=== PATIENT | male | born 1960 | race African-American/Black ===

== ENCOUNTER 2020-04-23 15:44 | Inpatient (IN) | payer OTHER ==
[2020-04-23] MEDS ORDERED: Fentanyl 100 MCG/2 ML VIAL ONE (16:16)
[2020-04-23] MEDS ORDERED: Lidocaine 1% w/Epinephrine 1:100K 20 ML VIAL ONE (16:16)
[2020-04-23 16:23] LABS: #Lymphocytes 1.2 thou/uL (1.20-3.40); #Monocytes 1.7 thou/uL (0.11-0.59); #Neutrophils 9.9 thou/uL (1.40-6.50); %Basophils 0.2 % (0.0-1.0); %Eosinophils 0.1 % (0.0-10.0); %Monocytes 13.5 % (0.0-10.0); %Neutrophils 77.2 % (42.0-75.0); Hemoglobin 13.6 g/dL (14.0-18.0); Mean Corpuscular HGB CONC 31.4 g/dL (32.0-36.0); Mean Corpuscular Hemoglobin 26.3 pg (27.0-31.0); Mean Corpuscular Volume 83.7 fL (78.0-98.0); Mean Platelet Volume 8.4 fL (7.4-10.4); Platelet Count 236 thou/uL (130-400); RBC Distribution Width 12.9 % (11.5-14.5); Red Blood Cell (RBC) Count 5.16 mill/uL (4.70-6.10); White Blood Cell (WBC) Count 12.8 thou/uL (4.8-10.8)
[2020-04-23] MEDS ORDERED: Azithromycin 500 MG VIAL ONE (16:23)
[2020-04-23] MEDS ORDERED: cefTRIAXone\\ROCEPHIN 2 GM VIAL ONE (16:23)
[2020-04-23] MEDS ORDERED: Sodium Chloride 0.9% 100 ML ONE (16:23)
--- NOTE | 2020-04-23 16:28 | RAD ---
FRONTAL RADIOGRAPH CHEST PORTABLE UPRIGHT: 04/23/20 COMPARISON: None. HISTORY: Shortness of breath with pleuritic chest pain. FINDINGS: There is no pneumothorax. There is dense perihilar and bibasilar opacity with lobulated increased den sity in the mid right lung zone/right lung base. There is partial consolidation/collapse of the right middle lobe and both lower lobes with associated small/moderate sized pleural effusion. IMPRESSION: Extensive pleural and parenchymal opacity with a perihilar/bibasilar predominance. Findings may be on the basis of multilobar infectious pneumonitis, aspiration, and/or pulmonary edema. Recommend short term follow-up chest radiograph following treatment to document resolution. POS: [facility]
[2020-04-23 16:30] LABS: INR-International Normal Ratio 1.1; Prothrombin Time 14.5 sec (12.0-14.7)
[2020-04-23 16:43] LABS: ALT (SGPT) 8 U/L (8-55); AST (SGOT) 12 U/L (5-34); Albumin 3.5 g/dL (3.5-5.0); Alkaline Phosphatase 91 U/L (40-110); Anion Gap 16 mmol/L (10-20); BUN (Urea Nitrogen) 9 mg/dL (8.4-25.7); Bilirubin, Total 1.4 mg/dL (0.2-1.2); Calc. Creatinine Clearance 0 mL/min (70-130); Carbon Dioxide 19 mmol/L (22-29); Chloride 100 mmol/L (98-107); Estimated GFR-MDRD Greater than 90; Globulin 3.8 g/dL (2.4-3.5); Glucose 120 mg/dL (70-105); Lipase Less than 4 U/L (8-78); Potassium 3.7 mmol/L (3.5-5.1); Protein, Total 7.3 g/dL (6.0-8.3); Sodium 131 mmol/L (136-145)
[2020-04-23] MEDS ORDERED: Midazolam HCl 2 mg/2 ml Vial ONE (17:04)
--- NOTE | 2020-04-23 18:26 | PDOC.FPRHP ---
- History of Present Illness Chief Complaint: Shortness of breath History of Present Illness: 60 year old male with past medical history of heart failure with reduced ejection fraction presents to the emergency department with complaints of shortness of breath. Patient stated that about a week ago he started to develop shortness of breath and a cough. He was seen earlier this week at an urgent care and diagnosed with pneumonia and started on doxycycline. He was also covid- 19 tested at time which has since resulted negative. Today the patient states that he acutely became short of breath and called EMS. Upon arrival they noted lack of breath sounds on the right side and hypoxia in the mid-80s. They performed a needle decompression that resulted in improve right sided breath sounds and improved oxygenation to the mid-90s on 4 L of supplemental oxygen. In the emergency department patient was found to have an elevated white count and a fever of 100.5 Patient denied feeling feverish. He denies any chills chest pain palpitations swelling nausea vomiting or diarrhea. Patient does have a history of severe congestive heart failure and wears a life vest. He states that he follows with a dredge master in [place] as well as a dredge master here but does not recall the name. He denies missing any of his home medications. ED Course: Right chest tube placed by Dr. Nieves. Received freedom and jack. - Allergies/Adverse Reactions Allergies Allergy/AdvReac Type Severity Reaction Status Date / Time No Known Allergies Allergy Unverified 04/23/20 19:59 - Home Medications Medication Instructions Recorded Confirmed Type Aspirin [Ecotrin] 81 mg PO DAILY 04/23/20 04/23/20 History Furosemide 40 mg PO DAILY 04/23/20 04/23/20 History Lisinopril 5 mg PO DAILY 04/23/20 04/23/20 History Magnesium Oxide 400 mg PO DAILY 04/23/20 04/23/20 History Spironolactone 25 mg PO DAILY 04/23/20 04/23/20 History - History PMHx: HFrEF PSHx: None FHx: Brother - CAD Social: Previous smoker - quit 1 mo ago, previously 1ppd since teenage; Denies alcohol; Denies drug abuse - Review of Systems General: reports: fever/chills. denies: weight/appetite/sleep changes Eyes: denies: vision changes, other ENT: denies: nasal congestion, rhinorrhea Respiratory: reports: cough, shortness of breath. denies: congestion Cardiovascular: denies: chest pain, palpitation, edema Gastrointestinal: denies: nausea, vomiting, diarrhea, abdominal pain Genitourinary: denies: dysuria, polyuria Skin: denies: rashes, lesions Musculoskeletal: denies: pain, arthritis/arthralgias Neurological: denies: numbness, weakness Psychological: denies: depression, other - Vital signs BP: 139/92, MAP: 107, Pulse: 82, Resp: 40, Temp: 99.5 (Oral), Pain: 5, O2 sat: 96 on (4L Oxygen), Wt: 63kg - Physical Exam Constitutional: awake, alert and oriented, well developed -Constitutional: Minimal distress 2/2 to breathing discomfort HEENT: EOMI, MMM -HEENT: Poor dentition, right occipital lipoma Neck: supple, FROM, no JVD Heart: RRR, normal S1/S2, no murmurs/rubs/gallops, pulses present, no edema -Lungs: Minimal left lower lobe crackles, right sided decreased breath sounds, poor inspiratory effort, mild tachypnea Abdomen: soft, non-tender -Abdomen: No peritoneal signs, quite tender around chest tube site, no rigidity Musculoskeletal: normal structure, ROM grossly normal Neurological: no focal deficit, CN II-XII intact Skin: no rash/lesions, capillary refill <2 seconds Heme/Lymphatic: no unusual bruising or bleeding, no purpura Psychiatric: normal mood and affect, good judgment and insight, intact recent and remote memory FMR H&P: Results - Labs Result Diagrams: 04/23/20 16:09 04/23/20 16:09 Lab results: WBC 12.8 thou/uL (4.8-10.8) H 04/23/20 16:09 Hgb 13.6 g/dL (14.0-18.0) L 04/23/20 16:09 Hct 43.2 % (42.0-52.0) 04/23/20 16:09 MCV 83.7 fL (78.0-98.0) 04/23/20 16:09 Plt Count 236 thou/uL (130-400) 04/23/20 16:09 Neutrophils % 77.2 % (42.0-75.0) H 04/23/20 16:09 Sodium 131 mmol/L (136-145) L 04/23/20 16:09 Potassium 3.7 mmol/L (3.5-5.1) 04/23/20 16:09 Chloride 100 mmol/L (98-107) 04/23/20 16:09 Carbon Dioxide 19 mmol/L (22-29) L 04/23/20 16:09 BUN 9 mg/dL (8.4-25.7) 04/23/20 16:09 Creatinine 1.00 mg/dL (0.7-1.3) 04/23/20 16:09 Glucose 120 mg/dL (70-105) H 04/23/20 16:09 Calcium 9.0 mg/dL (7.8-10.44) 04/23/20 16:09 Total Bilirubin 1.4 mg/dL (0.2-1.2) H 04/23/20 16:09 AST 12 U/L (5-34) 04/23/20 16:09 ALT 8 U/L (8-55) 04/23/20 16:09 Alkaline Phosphatase 91 U/L (40-110) 04/23/20 16:09 B-Natriuretic Peptide 817.0 pg/mL (0-100) H 04/23/20 16:09 Serum Total Protein 7.3 g/dL (6.0-8.3) 04/23/20 16:09 Albumin 3.5 g/dL (3.5-5.0) 04/23/20 16:09 Lipase Less than 4 U/L (8-78) L 04/23/20 16:09 - EKG Interpretation EKG: NSR: PVCs and LVH, No acute ST elevation/depression - Radiology Interpretation Chest x-ray Status: report reviewed by me (Extensive pleural and parenchymal opacity with a perihilar/bibasilar predominance. Findings may be on the basis of multilobar infectious pneumonitis, aspiration, and/or pulmonary edema. Recommend short term follow-up chest radiograph following treatment to document resolution.) Additional comment: Repeat following chest tube placement concerning for low lying tip and recommended CT confirmation FMR H&P: A/P - Problem List (1) Bilateral pneumonia Current Visit: Yes Status: Acute Code(s): J18.9 - PNEUMONIA, UNSPECIFIED ORGANISM (2) Chronic HFrEF (heart failure with reduced ejection fraction) Current Visit: Yes Status: Acute Code(s): I50.22 - CHRONIC SYSTOLIC ( CONGESTIVE) HEART FAILURE (3) Sepsis Current Visit: Yes Status: Acute Code(s): A41.9 - SEPSIS, UNSPECIFIED ORGANISM (4) Acute respiratory failure with hypoxia Current Visit: Yes Status: Acute Code(s): J96.01 - ACUTE RESPIRATORY FAILURE WITH HYPOXIA (5) Acute pneumothorax Current Visit: Yes Status: Acute Code(s): J93.83 - OTHER PNEUMOTHORAX - Plan Sepsis and Acute Hypoxic Respiratory Failure 2/2 to bilateral multifocal pneumonia - Sepsis: leukocytosis, tachycardia, tachypnea - Earlier this week, CXR showed pna, started on doxy, negative COVID - Right sided absent breath sounds and hypoxia with EMS, improved with needle decompression - Rocephin and azithro in ED, will continue inpt - Chest tube placed by Dr. Nieves in ED, CXR concerning for malposition, CT ordered to confirm - Will hold off on IVF due to hx of severe CHF - Procal pending, will trend - Blood cultures and sputum cultures ordered Hx of HFrEF - Unknown previous EF but pt has lifevest and states working on AICD - BNP: 800, believe this is likely near patient's baseline - Exam not consistent with volume overload - Will continue home med regimen and monitor for now - HF clinic consulted to follow VTE: Lovenox Diet: HH IVF: SL Code: Full Dispo: Admit to inpatient telemetry. ELOS >48 hours. Will treat patient for bilateral multifocal pneumonia. Plan to attempt to wean oxygen slowly as sats allow. Dr. Nieves following for chest tube. Procal and cultures pending to help direct treatment. Pt currently stable. PCP: No doc FMR H&P: Upper Level - Plan Date/Time: 04/23/201825 Eloy Piedra PGY2 Addendum - Attending - Attending Attestation Date/Time: 04/23/202029 I personally evaluated the patient and discussed the management with Dr. Piedra. I agree with the History, Examination, Assessment and Plan documented above with any addition or exceptions noted below. Discussed the above plan with Dr. Piedra in detail.
--- NOTE | 2020-04-23 18:44 | RAD ---
FRONTAL RADIOGRAPH CHEST: 04/23/20 at 5:44 p.m. COMPARISON: 04/23/20 at 3:47 p.m. HISTORY: Verify chest tube placement. FINDINGS: No pneumothorax is evident. There is dense opacity in the perihilar regions and lung bases suggesting a combination of pulmonary vascular prominence, interstitial opacity and consolidation/collapse. Pro bable associated bilateral pleural effusions. There is catheter tubing overlying the right upper quadrant. The catheter tubing is much lower than e xpected for a chest tube, particularly within the medial aspect of the right upper quadrant. IMPRESSION: Catheter tubing overlies the chest. The distal aspect of the catheter tubing is lower than expected f or a chest tube. A CT examination is thus advised to evaluate the location of this catheter tubing. P ersistent pleural and parenchymal opacity in the lung base is noted. Code T
--- NOTE | 2020-04-23 18:46 | OP ---
DATE OF PROCEDURE: 04/23/2020 PROCEDURE PERFORMED: 28-Japanese right tube thoracostomy. PREOPERATIVE DIAGNOSIS: Spontaneous right pneumothorax. POSTOPERATIVE DIAGNOSIS: Spontaneous right pneumothorax. ANESTHESIA: 1% lidocaine local anesthesia with intravenous sedation consisting of a total of 50 mcg of fentanyl and 2 mg of Versed. FINDINGS: Small air roper heard upon entering the chest. In spite of attempts at repositioning the tube, the tube curved around into the costophrenic sulcus, suggesting adhesions superiorly. DESCRIPTION OF PROCEDURE: After informed consent was obtained, the clapper valve on the small-bore catheter placed by EMS was taped superiorly to get it out of the field. His right chest was prepped and draped in sterile fashion. 1% lidocaine was used to infiltrate the skin and subcutaneous tissues at the level of the xiphoid, just lateral to the nipple. He was given 25 mcg of fentanyl and a milligram of Versed while this was setting up. When an adequate level of anesthesia was achieved, the skin was sharply incised. The patient was still quite awaken and additional 25 mcg of fentanyl and 1 mg of Versed were given. A subcutaneous tract was developed superiorly and posteriorly by blunt dissection. Additional lidocaine was infiltrated into the interspace, marching along the rib over the superior rib margin. As the chest was entered, bloody fluid was aspirated. The needle was withdrawn slightly and a bolus of lidocaine was injected into the intercostal space. Blunt dissection was used to enter the pleural space and the wound was probed with the surgeon's finger. A 28-Japanese chest tube was inserted. The patient had inordinate complaints of pain during this part of the procedure. The chest tube was secured to the skin with suture connected to close suction drainage and dressed. Postprocedure chest x-ray showed that the tube had curved around the costophrenic sulcus. The dressing was taken down and the suture securing the chest tube was removed, after re-prepping and draping that area of the chest in the chest tube, the chest tube was withdrawn and attempts were made to reposition it with similar results suggesting that the patient had adhesions superiorly. The chest tube was secured with suture and dressed. Job ID: [id number]
[2020-04-23] MEDS ORDERED: HYDROcodone/Acetaminophen 5/325 mg Tablet ONE ×2 (19:20→20:49)
--- NOTE | 2020-04-23 19:59 | CON ---
DATE OF CONSULTATION: 04/23/2020 REQUESTING PHYSICIAN: Dr. Tucker. CHIEF COMPLAINT: Shortness of breath. HISTORY OF PRESENT ILLNESS: The patient is a 60-year-old black man with a nonischemic cardiomyopathy. He only quit smoking about a month ago. He presented to the [facility] two days ago with complaints of pleuritic pain on his right costal margin and some subjective fever and chills. His temperature at that time was 99.8, and he had a right lower lobe infiltrate on chest x-ray. He was started on doxycycline and sent home. Today, he became markedly short of breath. EMS was summoned, and upon their arrival, he was tachypneic by report as with respiratory rates as fast as 60 per minute. He had absent breath sounds on the right side, O2 saturations of 80%, and with a clinical diagnosis of right-sided pneumothorax, a small bore catheter was placed, with release of an air roper, decrease in his respiratory rate and improvement in his O2 saturations, a flapper valve was affixed to the tube and he was brought by EMS to [facility]. PAST MEDICAL HISTORY: Significant for hypertension and nonischemic cardiomyopathy. His cardiac catheterization showed normal coronaries with an LVEF in the 20% to 25% range, about 2 weeks earlier an echocardiogram had calculated his EF at 16%. SOCIAL HISTORY: He reports only having smoked for about 10 years and only smoked about 1/4 to 1/3 of a pack of cigarettes a day. HOME MEDICATIONS: 1. Coreg 6.25 mg b.i.d. 2. Lisinopril 10 mg a day. 3. Aldactone 12.5 mg every evening. 4. Lasix 40 mg a day. 5. Baby aspirin a day. 6. Magnesium oxide 400 mg a day. 7. Neurontin 600 mg at bedtime. ALLERGIES: HE DENIES ANY MEDICAL OR FOOD ALLERGIES. HE HAS NO HISTORY OF PREMATURE CORONARY ARTERY DISEASE. REVIEW OF SYSTEMS: Positive for chest pain and shortness of breath. PHYSICAL EXAMINATION: VITAL SIGNS: His heart rate was in the 80s, systolic blood pressure in the 130s. Respiratory rate was in the high 20s to low 30s. On nasal cannula oxygen, he has O2 saturations in the mid 90s. He is 5 feet and 10 inches, and weighs 145 pounds. He has an air leak appreciable through Heimlich valve, type flapper on a small-bore catheter placed in the right anterior chest by EMS. LUNGS: He has bilateral breath sounds. HEART: Regular rate and rhythm. ABDOMEN: Soft and nontender. He has palpable radial and dorsalis pedis pulses. DIAGNOSTIC STUDIES: His chest x-ray shows some atelectatic changes in the mid right lung field and large cardiac silhouette. Review of recent chest x-rays and CT scans through the [facility] system showed some infiltrate in the right lower lobe with scattered bullous changes in the periphery, more so on the right than on the left. IMPRESSION AND RECOMMENDATIONS: The patient has become febrile here in the emergency room, appears short of breath and has pleural fluid that is dripping from the catheter placed by EMS. I think it would be appropriate to put a conventional chest tube and connect it to close suction drainage and admit him to the hospital for treatment of his pneumonia rather than trying to treat his pneumothorax as an outpatient. I will place the chest tube and follow along with the admitting service. Job ID: [id number]
[2020-04-23] MEDS ORDERED: HYDROcodone/Acetaminophen 5/325 mg Tablet PO PRN (21:38)
[2020-04-23] MEDS ORDERED: Guaifenesin DM 100-10/5 ML UDCUP PO PRN (22:18)
[2020-04-23] MEDS ORDERED: Ondansetron ODT 4 MG TAB PO PRN (22:18)
[2020-04-23] MEDS ORDERED: Ondansetron PF 4 MG/2 ML Vial IVP PRN (22:18)
[2020-04-23] MEDS ORDERED: Acetaminophen 325 MG TAB PO PRN (22:18)
[2020-04-23 23:57] VITALS: BMI 19.5
--- NOTE | 2020-04-24 00:46 | CT ---
CHEST CT WITHOUT CONTRAST: Date: 04/23/2020 COMPARISON: None. HISTORY: Evaluate location of chest tube. TECHNIQUE: Axial CT imaging at 5 mm intervals from the thoracic inlet through the upper abdomen without contrast . Coronal and sagittal reformatted imaging obtained. FINDINGS: The lack of contrast media limits assessment of the viscera, vascular structures, and for lymphadenop athy. No obvious lymphadenopathy is noted within the chest. The imaged upper abdomen demonstrates no acute findings. The heart size is prominent. There is a small anterior right-sided pneumothorax. There is an inferior right chest tube which overl ies the inferiormost aspect of the right lung base and extends deep into the posterior costophrenic a ngle, terminating adjacent to the superior aspect of the right kidney. This is felt to likely be with in the inferiormost aspect of the right hemithorax just along the superior margin of the pleural exte nding deep into the posterior costophrenic sulcus. Clinical correlation as to the drainable of this c atheter is advised. The small pneumothorax on the right demonstrates an apical mid and inferior compo nent, but measures only up to 1.1 cm in AP dimension. There are prominent subpleural cystic changes w ithin the anterior aspect of the right upper lobe measuring up to 4.0 cm. There are coarse increased linear interstitial densities seen throughout the left upper lobe posterio rly and inferiorly. There is small volume consolidated change within the inferior aspect of the lingu la and left lower lobe. There is complex loculated pleural fluid within the right hemithorax, including loculated components within the major fissure and minor fissure measuring 2.8 and 4.2 cm, respectively. Posterior loculate d right pleural fluid noted measuring up to 10.0 cm in craniocaudal dimension. There are inferior den se areas of consolidative change within the right middle lobe and right lower lobe suggesting multifo delvin infectious pneumonitis. Foci of gas within the pleura and lung parenchyma within the medial right base may signify gas within pleural fluid on the basis of empyema or could represent necrotizing pne umonia. The osseous structures demonstrate no acute findings. IMPRESSION: Loculated pleural fluid on the right suggests complex pleural fluid on the basis of infection or less likely neoplasia. Areas of consolidation noted in the left lower lobe, right middle lobe, and right lower lobe consistent with multifocal infectious pneumonitis. There is a small right pneumothorax. Th e right chest tube is seen along the inferiormost aspect of the right hemithorax and extends deep int o the right posterior costophrenic sulcus as detailed above. Short-term follow-up imaging following t reatment to document resolution advised. POS: [facility]
[2020-04-24] MEDS: HYDROcodone/Acetaminophen 5/325 mg Tablet PO PRN ×4 (02:10→21:08)
[2020-04-24 05:19] LABS: Band 3 % (5-11); Hemoglobin 13.8 g/dL (14.0-18.0); Hypochromia SLIGHT = 6-15 cells (100X) (0-5/hpf); Lymphocytes 11 % (21-51); MDiff Complete? YES; Mean Corpuscular HGB CONC 31.9 g/dL (32.0-36.0); Mean Corpuscular Hemoglobin 26.2 pg (27.0-31.0); Mean Platelet Volume 9.3 fL (7.4-10.4); Monocytes 23 % (0-10); Neutrophil 63 % (42-75); Phosphorus 3.8 mg/dL (2.3-4.7); Platelet Count 246 thou/uL (130-400); Platelet Morphology Comment Appears Adequate; RBC Distribution Width 12.7 % (11.5-14.5); Red Blood Cell (RBC) Count 5.29 mill/uL (4.70-6.10)
[2020-04-24 05:27] LABS: Anion Gap 13 mmol/L (10-20); BUN (Urea Nitrogen) 9 mg/dL (8.4-25.7); Calc. Creatinine Clearance 90 mL/min (70-130); Calcium 8.9 mg/dL (7.8-10.44); Carbon Dioxide 23 mmol/L (22-29); Chloride 101 mmol/L (98-107); Estimated GFR-MDRD Greater than 90; Glucose 112 mg/dL (70-105); Magnesium 1.8 mg/dL (1.6-2.6); Potassium 4.1 mmol/L (3.5-5.1); Sodium 133 mmol/L (136-145)
--- NOTE | 2020-04-24 06:13 | PDOC.FM ---
- Subjective Subjective: The patient says his SOB has improved since admission. He reports severe chest tube site pain temporarily improved with Tylenol. He denies headache, vision changes, chest pain, abdominal pain and edema. He denies following daily fluid restriction for his HFrEF at home. He notes decreased oral intake over the past week due to feeling poorly. - Objective MAR Reviewed: Yes Vital Signs & Weight: Vital Signs (12 hours) Temp Pulse Resp BP Pulse Ox 04/24/20 04:34 97.5 F L 63 20 144/77 H 100 04/24/20 03:00 99 04/24/20 00:09 98.3 F 69 20 140/93 H 99 04/23/20 23:55 99.2 F 71 34 H 153/104 H 98 Weight Weight 63.503 kg I&O: 04/22/20 04/23/20 04/24/20 06:59 06:59 06:59 Output Total 125 Balance -125 Result Diagrams: 04/24/20 04:45 04/24/20 04:45 Phys Exam - Physical Examination Constitutional: NAD Poor dentation HEENT: moist MMs, sclera anicteric Neck: supple, full ROM Respiratory: wheezing present Decreased air movement in right lung rome. Wheezing noted throughout Cardiovascular: RRR, no significant murmur Gastrointestinal: soft, positive bowel sounds Musculoskeletal: no edema, pulses present Neurological: moves all 4 limbs Lymphatic: no nodes Psychiatric: normal affect, A&O x 3 Skin: no rash, normal turgor Dx/Plan - Plan Plan: 1. Sepsis and Acute Hypoxic Respiratory Failure 2/2 to bilateral multifocal pneumonia Patient met sepsis criteria due to leukocytosis, tachycardia and tachypnea associated with pneumonia. Was being treated for pneumonia outpatient with doxy. Neg COVID. Chest tube placed in ED by Dr. Nieves after absent right sided breath sounds noted in field and treated with needle decompression. CXR showed pleural and parenchymal opacities concerning for multilobar pneumonitis vs. aspiration vs. pulmonary edema. Rocephin and azithro begun 04/23. Procal 0.55 -> 0.54. CT Chest showed R loculated pleural fluid, consolidation in LLL, RML and RLL, and small R pneumothorax. CT surgery following. -Hold IVF due to hx of severe CHF -Trend procal -F/u blood and sputum cultures -Wean O2 as tolerated with sats maintained > 92% -Pain control with Tylenol and morphine 2mg -Continue rocephin/azithromycin -Start clindamycin for anaerobic coverage -F/u CT surgery recs 2. Hx of HFrEF On recent echo, EF was 16%. Recent cardiac cath showed normal coronaries with EF 20-25%. Patient uses life vest and says he is working on AICD. BMP 800 in ED. HF clinic consulted. -Continue home meds -Monitor for volume overload -F/u HF recs 3. HTN -Continue home meds 4. Hyponatremia Sodium 133 this morning, up from 131 on arrival. Likely due to poor oral intake for the past week. -Encouraged oral intake -Monitor with am labs VTE: Lovenox Diet: HH IVF: SL Code: Full PCP: [facility] call Dispo: Home pending improvement of o2 saturation and any necessary interventions per CT surgery recs Addendum - Attending - Attending Attestation Date/Time: 04/24/20 1179 I personally evaluated the patient and discussed the management with Dr. Davalos. I agree with the History, Examination, Assessment and Plan documented above with any addition or exceptions noted below. Patient feeling improved but having significant pain associated with tube thoracostomy. Will augment pain control to promote adequate inspiration. Continue broad spectrum abx. Based on CT scan results, patient may need further interventions if there is concern for empyema or other loculated process.
[2020-04-24] MEDS: Aspirin 81 mg Enteric Coated Tablet PO SCH (08:46)
[2020-04-24] MEDS: Magnesium Oxide 400 MG TAB PO SCH (08:46)
[2020-04-24] MEDS: Carvedilol 6.25 MG TAB PO SCH ×2 (08:46→21:08)
[2020-04-24] MEDS: Spironolactone 25 MG TAB PO SCH (08:46)
[2020-04-24] MEDS: Lisinopril 5 MG TAB PO SCH (08:46)
[2020-04-24] MEDS: Furosemide 40 MG TAB PO SCH (08:46)
[2020-04-24] MEDS: Enoxaparin Sodium 40 MG/0.4 ML SYRINGE SC SCH (08:47)
--- NOTE | 2020-04-24 09:30 | RAD ---
PORTABLE CHEST ONE VIEW: HISTORY: Follow up pneumothorax. COMPARISON: 04/23/2020 FINDINGS: Left chest tube in place in the inferior chest. Pleural and parenchymal opacity changes noted in both bases. The upper lung zones appear clear. IMPRESSION: Stable pleural and parenchymal opacity changes in both bases with right chest tube without evidence f or significant pneumothorax. POS: [facility]
[2020-04-24] MEDS ORDERED: Morphine 2 MG/ML VIAL SLOW IVP PRN (09:49)
[2020-04-24] MEDS: Clindamycin/D5W 300 MG/50 ML BAG IVPB SCH ×3 (11:18→23:54)
[2020-04-24] MEDS ORDERED: Azithromycin 500 MG in Sodium Chloride 0.9% 250 ML 250 ML IVPB SCH (16:30)
[2020-04-24] MEDS: cefTRIAXone\\ROCEPHIN 2 GM in Sodium Chloride 0.9% 100 ML IVPB SCH (17:49)
[2020-04-24] MEDS: Azithromycin 500 MG in Sodium Chloride 0.9% 250 ML 250 ML IVPB SCH (18:37)
[2020-04-24] MEDS: Gabapentin 300 MG CAP PO SCH (21:08)
--- NOTE | 2020-04-25 06:06 | PDOC.FM ---
- Subjective Subjective: Doing well this morning. Has pain around chest tube site. Per patient, another doctor stated this morning that they would pull the chest tube today. He is mildly short of breath while talking. - Objective MAR Reviewed: Yes Vital Signs & Weight: Vital Signs (12 hours) Temp Pulse Resp BP Pulse Ox 04/25/20 03:41 97.9 F 68 18 150/88 H 96 04/25/20 03:38 93 L 04/25/20 03:37 98.4 F 71 18 127/78 96 04/24/20 23:08 98.4 F 70 18 128/79 93 L 04/24/20 20:00 98.0 F 77 18 133/86 98 Weight Weight 61.099 kg I&O: 04/23/20 04/24/20 04/25/20 06:59 06:59 06:59 Output Total 125 585 Balance -125 -585 Result Diagrams: 04/25/20 06:07 04/25/20 06:07 Phys Exam - Physical Examination Constitutional: NAD HEENT: moist MMs, sclera anicteric Neck: supple, full ROM Respiratory: no wheezing, no rales, no rhonchi, clear to auscultation bilateral Speaking in short sentences w/ shortness of breath. Cardiovascular: RRR, no significant murmur Gastrointestinal: soft, non-tender Musculoskeletal: no edema Neurological: normal sensation, moves all 4 limbs Psychiatric: normal affect, A&O x 3 Skin: no rash, normal turgor Dx/Plan (1) Acute pneumothorax Code(s): J93.83 - OTHER PNEUMOTHORAX Status: Acute (2) Acute respiratory failure with hypoxia Code(s): J96.01 - ACUTE RESPIRATORY FAILURE WITH HYPOXIA Status: Acute (3) Bilateral pneumonia Code(s): J18.9 - PNEUMONIA, UNSPECIFIED ORGANISM Status: Acute (4) Chronic HFrEF (heart failure with reduced ejection fraction) Code(s): I50.22 - CHRONIC SYSTOLIC (CONGESTIVE) HEART FAILURE Status: Acute (5) Sepsis Code(s): A41.9 - SEPSIS, UNSPECIFIED ORGANISM Status: Acute - Plan Plan: Sepsis and Acute Hypoxic Respiratory Failure 2/2 to bilateral multifocal pneumonia -CT Chest showed R loculated pleural fluid, consolidation in LLL, RML and RLL, and small R pneumothorax. -Doxycycline prior to admission. Neg COVID. -Rocephin and azithro (04/23). Clindamycin for anaerobe coverage (04/24) -Procal 0.55 > 0.54 > 0.37. -S/P chest tube placement 04/23. CV surgery consulted. Appreciate recommendations. -Pain control with Tylenol and [place] 5/325. HFrEF -On recent echo, EF was 16%. Recent cardiac cath showed normal coronaries with EF 20-25%. Patient uses life vest and says he is working on AICD. -Continue home meds -Monitor for volume overload -F/u HF recs HTN -Continue home meds Hyponatremia, improving. -Encouraged oral intake -Monitor with am labs VTE: Lovenox Diet: HH IVF: SL Code: Full PCP: City call, Dispo: Stable. Addendum - Attending - Attending Attestation Date/Time: 04/25/20 [id number] I personally evaluated the patient and discussed the management with Dr. Bridges. I agree with the History, Examination, Assessment and Plan documented above with any addition or exceptions noted below. Chest tube removal per CV surg today. Will await further recs. respiratory status is improving.
[2020-04-25] MEDS: Clindamycin/D5W 300 MG/50 ML BAG IVPB SCH ×4 (06:27→23:42)
[2020-04-25 06:43] LABS: Band 8 % (5-11); Eosinophils 2 % (0-10); Hemoglobin 12.3 g/dL (14.0-18.0); Lymphocytes 13 % (21-51); MDiff Complete? YES; Mean Corpuscular HGB CONC 31.6 g/dL (32.0-36.0); Mean Corpuscular Hemoglobin 26.1 pg (27.0-31.0); Mean Corpuscular Volume 82.5 fL (78.0-98.0); Mean Platelet Volume 8.3 fL (7.4-10.4); Monocytes 21 % (0-10); Neutrophil 56 % (42-75); Platelet Count 285 thou/uL (130-400); Platelet Morphology Comment Appears Adequate; RBC Distribution Width 12.7 % (11.5-14.5); Red Blood Cell (RBC) Count 4.73 mill/uL (4.70-6.10); White Blood Cell (WBC) Count 8.6 thou/uL (4.8-10.8)
[2020-04-25 06:48] LABS: Anion Gap 15 mmol/L (10-20); BUN (Urea Nitrogen) 10 mg/dL (8.4-25.7); Calc. Creatinine Clearance 92 mL/min (70-130); Calcium 8.7 mg/dL (7.8-10.44); Carbon Dioxide 23 mmol/L (22-29); Chloride 99 mmol/L (98-107); Estimated GFR-MDRD Greater than 90; Glucose 103 mg/dL (70-105); Potassium 3.6 mmol/L (3.5-5.1); Sodium 133 mmol/L (136-145)
--- NOTE | 2020-04-25 07:58 | RAD ---
EXAM: Single view of the chest HISTORY: Pneumothorax COMPARISON: 04/24/2020 FINDINGS: Single view of the chest shows a normal sized cardiomediastinal silhouette. There is a rig ht-sided chest tube. Stable opacity seen in the right lung base. No obvious pneumothorax is visualized. The bones are unremarkable. IMPRESSION: Stable exam
[2020-04-25] MEDS: HYDROcodone/Acetaminophen 5/325 mg Tablet PO PRN (08:30)
[2020-04-25] MEDS: Enoxaparin Sodium 40 MG/0.4 ML SYRINGE SC SCH (08:31)
[2020-04-25] MEDS: Furosemide 40 MG TAB PO SCH (08:31)
[2020-04-25] MEDS: Spironolactone 25 MG TAB PO SCH (08:31)
[2020-04-25] MEDS: Aspirin 81 mg Enteric Coated Tablet PO SCH (08:33)
[2020-04-25] MEDS: Carvedilol 6.25 MG TAB PO SCH ×2 (08:33→20:59)
[2020-04-25] MEDS: Lactinex Tablet PO SCH (08:33)
[2020-04-25] MEDS: Lisinopril 5 MG TAB PO SCH (08:33)
[2020-04-25] MEDS: Magnesium Oxide 400 MG TAB PO SCH (08:33)
[2020-04-25] MEDS ORDERED: Fentanyl 100 MCG/2 ML VIAL ONE (15:48)
[2020-04-25] MEDS: cefTRIAXone\\ROCEPHIN 2 GM in Sodium Chloride 0.9% 100 ML IVPB SCH (18:34)
[2020-04-25] MEDS: Azithromycin 500 MG in Sodium Chloride 0.9% 250 ML 250 ML IVPB SCH (20:56)
[2020-04-25] MEDS: Gabapentin 300 MG CAP PO SCH (20:58)
[2020-04-26 05:29] LABS: Anion Gap 14 mmol/L (10-20); BUN (Urea Nitrogen) 10 mg/dL (8.4-25.7); Calc. Creatinine Clearance 86 mL/min (70-130); Calcium 8.7 mg/dL (7.8-10.44); Carbon Dioxide 22 mmol/L (22-29); Chloride 100 mmol/L (98-107); Estimated GFR-MDRD Greater than 90; Glucose 101 mg/dL (70-105); Potassium 3.8 mmol/L (3.5-5.1); Sodium 132 mmol/L (136-145)
[2020-04-26] MEDS: Clindamycin/D5W 300 MG/50 ML BAG IVPB SCH ×2 (05:35→12:29)
--- NOTE | 2020-04-26 05:36 | PDOC.FM ---
- Subjective Subjective: Doing well this morning. Pain has improved significantly since the chest tube has come out. - Objective MAR Reviewed: Yes Vital Signs & Weight: Vital Signs (12 hours) Temp Pulse Resp BP BP Pulse Ox 04/26/20 05:30 98.4 F 69 16 141/86 H 94 L 04/26/20 01:00 66 16 137/79 04/25/20 20:59 158/82 H 04/25/20 20:56 99.1 F 66 16 158/82 H 96 Weight Weight 58.922 kg I&O: 04/24/20 04/25/20 04/26/20 06:59 06:59 06:59 Intake Total 675 Output Total 135 585 Balance -135 -585 675 Result Diagrams: 04/26/20 04:59 04/26/20 04:59 Phys Exam - Physical Examination Constitutional: NAD HEENT: moist MMs Neck: supple, full ROM Respiratory: no wheezing, no rales, no rhonchi, clear to auscultation bilateral Cardiovascular: RRR, no significant murmur Gastrointestinal: soft, non-tender Musculoskeletal: no edema Neurological: non-focal, moves all 4 limbs Psychiatric: normal affect, A&O x 3 Skin: no rash, normal turgor Dx/Plan (1) Acute pneumothorax Code(s): J93.83 - OTHER PNEUMOTHORAX Status: Acute (2) Acute respiratory failure with hypoxia Code(s): J96.01 - ACUTE RESPIRATORY FAILURE WITH HYPOXIA Status: Acute (3) Bilateral pneumonia Code(s): J18.9 - PNEUMONIA, UNSPECIFIED ORGANISM Status: Acute (4) Chronic HFrEF (heart failure with reduced ejection fraction) Code(s): I50.22 - CHRONIC SYSTOLIC (CONGESTIVE) HEART FAILURE Status: Acute (5) Sepsis Code(s): A41.9 - SEPSIS, UNSPECIFIED ORGANISM Status: Acute - Plan Plan: Sepsis and Acute Hypoxic Respiratory Failure 2/2 to bilateral multifocal pneumonia, resolved. Pneumonia improving. -CT Chest showed R loculated pleural fluid, consolidation in LLL, RML and RLL, and small R pneumothorax. -Doxycycline prior to admission. Neg COVID. -Rocephin and azithro (04/23). Clindamycin for anaerobe coverage (04/24) -Procal 0.55 > 0.54 > 0.37. -S/P chest tube placement 04/23. CV surgery consulted. Appreciate recommendations. -Pain control with Tylenol and [place] 5/325. Chest tube has been removed, will d/ c [place]. -Has been on supplemental O2 throughout stay. Will wean as tolerated with plans for d/c home w/o oxygen if possible. Patient is stable for d/c once off O2. We will transition to oral antibiotics. HFrEF -On recent echo, EF was 16%. Recent cardiac cath showed normal coronaries with EF 20-25%. Patient uses life vest and says he is working on AICD. -Continue home meds -Monitor for volume overload -F/u HF recs -PT Evaluated and recommends f/u with cardiac rehab on d/c. HTN -Continue home meds Hyponatremia, improving. -Encouraged oral intake -Monitor with am labs VTE: Lovenox Diet: HH IVF: SL Code: Full PCP: City call, Dispo: Stable. Addendum - Attending - Attending Attestation Date/Time: 04/26/20 [id number] I personally evaluated the patient and discussed the management with Dr. moya. I agree with the History, Examination, Assessment and Plan documented above with any addition or exceptions noted below. D/c home on PO augmentin.
[2020-04-26 05:43] LABS: Band 2 % (5-11); Hemoglobin 12.1 g/dL (14.0-18.0); Hypochromia SLIGHT = 6-15 cells (100X) (0-5/hpf); Lymphocytes 16 % (21-51); MDiff Complete? YES; Mean Corpuscular HGB CONC 32.9 g/dL (32.0-36.0); Mean Corpuscular Hemoglobin 26.9 pg (27.0-31.0); Mean Corpuscular Volume 81.8 fL (78.0-98.0); Mean Platelet Volume 7.9 fL (7.4-10.4); Monocytes 13 % (0-10); Neutrophil 69 % (42-75); Platelet Count 305 thou/uL (130-400); Platelet Morphology Comment Appears Adequate; RBC Distribution Width 12.3 % (11.5-14.5); White Blood Cell (WBC) Count 7.7 thou/uL (4.8-10.8)
[2020-04-26] MEDS: HYDROcodone/Acetaminophen 5/325 mg Tablet PO PRN (06:45)
[2020-04-26 07:45] VITALS: TEMP 98.1
--- NOTE | 2020-04-26 08:09 | RAD ---
RADIOGRAPH CHEST 1 VIEW: Date: 04/26/2020. Time: 3:55 a.m. HISTORY: A 60-year-old male for pneumothorax followup. COMPARISON: 04/25/2020, 4:37 a.m. FINDINGS: Right basilar chest tube has been removed. No other overall interval change. No pneumothorax identif ied. Parenchymal opacities, probably representing atelectasis, at the right base, remain unchanged. Possible small bilateral pleural effusions. No pulmonary edema. Opacities in the right mid lung zo ne may represent trapped fluid in fissures. IMPRESSION: 1. Interval removal of right basilar chest tube. 2. No other interval change. 3. Right basilar atelectasis. 4. No pneumothorax visualized. 5. trapped fluid in the right fissures YAYA [] POS: JALEEL
[2020-04-26] MEDS: Furosemide 40 MG TAB PO SCH (09:04)
[2020-04-26] MEDS: Aspirin 81 mg Enteric Coated Tablet PO SCH (09:04)
[2020-04-26] MEDS: Enoxaparin Sodium 40 MG/0.4 ML SYRINGE SC SCH (09:04)
[2020-04-26] MEDS: Carvedilol 6.25 MG TAB PO SCH (09:04)
[2020-04-26] MEDS: Spironolactone 25 MG TAB PO SCH (09:05)
[2020-04-26] MEDS: Magnesium Oxide 400 MG TAB PO SCH (09:05)
[2020-04-26] MEDS: Lactinex Tablet PO SCH (09:05)
[2020-04-26] MEDS: Lisinopril 5 MG TAB PO SCH (09:05)
[2020-04-26 12:17] VITALS: BP 119/70
--- NOTE | 2020-04-27 00:26 | DIS ---
DATE OF ADMISSION: 04/23/2020 DATE OF DISCHARGE: 04/26/2020 RESIDENT: Rama Bridges MD. ADMITTING ATTENDING: Irineo Kingsley MD. DISCHARGE ATTENDING: Tim Larson MD. CONSULTS: CV Surgery, Dr. Miller. PROCEDURES: Right-sided chest tube. PRIMARY DIAGNOSES: Sepsis and acute hypoxic respiratory failure secondary to bilateral multifocal pneumonia. SECONDARY DIAGNOSES: 1. Spontaneous pneumothorax. 2. History of heart failure with reduced ejection fraction. DISCHARGE MEDICATION: 1. Aspirin 81 mg. 2. Lisinopril 5 mg. 3. Spironolactone 12.5 mg daily. 4. Magnesium oxide 400 mg. 5. Lasix 40 mg. 6. Carvedilol 6.25 mg. 7. Gabapentin 600 mg. 8. Augmentin 875 mg 1 tab b.i.d. for 7 days. DISCONTINUED MEDICATIONS: None. HPI/HOSPITAL COURSE: Mr. Stokes is a 60-year-old male with a past medical history of heart failure with reduced ejection fraction who came to the emergency room with complaints of shortness of breath. He had been treated outpatient for pneumonia and was taking doxycycline. However, his symptoms continued to progressively worsen. He was tested for COVID at an outside ER and it was negative. On the day of admission, he acutely became short of breath and called EMS. When EMS arrived, they could not hear breath sounds on the right side and he was hypoxic into the mid 80s. They performed a needle decompression in the field, which improved his right-sided breath sounds and brought his oxygen saturation to the mid 90s with supplemental oxygen. Dr. Miller placed a chest tube in the right side and he was started on Rocephin and azithromycin for pneumonia. Throughout his hospital course, he continued to improve. We added on clindamycin for coverage of anaerobic bacteria in addition to the Rocephin and azithromycin. The chest tube was removed on 04/25/2020 and on 04/26/2020, after doing well status post removal, he was weaned off oxygen therapy and was eager to be discharged home. DISPOSITION: Stable. DISCHARGE INSTRUCTIONS: Location: Home. Diet: Heart healthy. Activity: Ad chanel. Followup: Follow up with primary care physician within 7 days. Job ID: [id number]
== END 2020-04-26 13:55 | disposition home or self-care (01) | DRG 871 ==
LOC: ERS 15:44 → 2SE 18:32
PROVIDERS: ADMIT Student in an Organized Health Care Education/Training Program; ATTEND Student in an Organized Health Care Education/Training Program
PROC: 0W9930Z Drainage of Right Pleural Cavity with Drainage Device, Percutaneous Approach (ICD-10-PCS; principal; 2020-04-23)
DX: A41.9 Sepsis, unspecified organism (principal); J96.01 Acute respiratory failure with hypoxia; J18.9 Pneumonia, unspecified organism; J93.83 Other pneumothorax; I50.22 Chronic systolic (congestive) heart failure; I42.8 Other cardiomyopathies; F17.210 Nicotine dependence, cigarettes, uncomplicated; E87.1 Hypo-osmolality and hyponatremia; Z79.82 Long term (current) use of aspirin; Z79.899 Other long term (current) drug therapy
CPT/HCPCS: 32551; 36415; 71045; 71250; 80048; 80053; 83690; 83735; 83880; 84100; 84145; 84443; 84484; 85025; 85610; 85730; 87040; 93005; 93798; 94760; 96365; 96375; 96376; 97139; J0456; J0696; J1650; J2250; J3010; J3490; J7050